=== PATIENT | female | born 1985 | race Two or more races ===

== ENCOUNTER 2017-07-28 10:01 | Emergency (ER) | payer OTHER ==
[~2017-07-28] VITALS: Ht 177.8 cm; Wt 59.0 kg
[~2017-07-28 10:01] MED LIST: TOBRADEX EYE DR10 ML OP
== END 2017-07-28 15:56 | disposition home or self-care (01) ==
LOC: ER 10:01
DX: J06.9 Acute upper respiratory infection, unspecified (principal)

== ENCOUNTER 2018-04-27 22:04 | Emergency (ER) | payer OTHER ==
[~2018-04-27] VITALS: Ht 177.8 cm; Wt 59.0 kg
[2018-04-28] MEDS ORDERED: KETO10TA2 PO (02:22)
== END 2018-04-28 02:33 | disposition home or self-care (01) ==
LOC: ER 22:04
DX: S93.402A Sprain of unspecified ligament of left ankle, initial encounter (principal); W10.8XXA Fall (on) (from) other stairs and steps, initial encounter; Y93.89 Activity, other specified; Y92.89 Other specified places as the place of occurrence of the external cause; Y99.8 Other external cause status